=== PATIENT | female | born 1995 | race Two or more races ===

== ENCOUNTER 2018-01-22 11:18 | Emergency (ER) | payer MEDICAID, OTHER ==
[~2018-01-22] VITALS: Ht 167.6 cm; Wt 51.0 kg
[2018-01-22] MEDS ORDERED: ondansetron/PF 4mg/2ml inj IV ONE (12:10)
[2018-01-22] MEDS ORDERED: acetaminophen w/codeine (30MG) #3 tablet PO ONE (12:10)
[2018-01-22] MEDS ORDERED: ondansetron 4mg rapidly disintigrating tab PO ONE (12:15)
[2018-01-22] MEDS ORDERED: ONDA4TAB9 PO (13:28)
[2018-01-22] MEDS ORDERED: AMOX-422 PO (13:28)
[2018-01-22] MEDS ORDERED: BUTA-281 PO (13:29)
[2018-01-22 13:48] VITALS: BP 105/40
== END 2018-01-22 13:51 | disposition home or self-care (01) ==
LOC: ER 11:19
DX: J32.1 Chronic frontal sinusitis (principal)
CPT/HCPCS: 70450; 93005; 99284